=== PATIENT | female | born 1995 | race African-American/Black ===

== ENCOUNTER 2016-10-09 09:42 | Emergency (ER) | payer SELFPAY ==
[2016-10-09 09:49] VITALS: BP 131/97; PULSE 130; TEMP 99.3; BMI 24.7
[2016-10-09] MEDS ORDERED: AZITHROMYCIN 1 GM PACKET PO ONE (10:28)
[2016-10-09] MEDS ORDERED: AZITHROMYCIN 1 GM PACKET ONE (10:40)
--- NOTE | 2016-10-09 10:43 | PDOC ---
History of Present Illness - General Chief Complaint: Vaginal Sxs Stated Complaint: IRRITATION (GENITALIA) Time Seen by Provider: 10/09/16 10:10 History Source: Patient Exam Limitations: No Limitations - History of Present Illness Travel History: No Initial Comments: 10/09/16 10:39 Patient came for evaluation of dry and itching to vagina. was treated for candidiasis one month ago with creams which felt like resolved. However had a recurrence of dryness, itching, and foul smell vaginally. is with same sexual partner who is asymptomatic of any drainage sores lesions or history of STDs. Denies nausea vomiting, or fevers. Denies any dysuria. 10/10/16 09:11 Timing/Duration: reports: getting worse, changing over time Quality: reports: mild, moderate Abdominal Pain Onset Location: reports: suprapubic Pain Radiation: reports: no radiation Past History - Travel Traveled outside of the country in the last 30 days: No Close contact w/someone who was outside of country & ill: No - Past Medical History Allergies/Adverse Reactions: Allergies Allergy/AdvReac Type Severity Reaction Status Date / Time Penicillins Allergy Hives Verified 10/09/16 09:49 Home Medications: Ambulatory Orders Fluconazole [Diflucan -] 50 mg PO ONCE #2 tablet 10/09/16 Fluconazole [Diflucan -] 100 mg PO ONCE #2 tablet 10/09/16 Other medical history: NONE - Reproductive History Cervical CA: No Dysfunctional Uterine Bleeding: No Ectopic : No Endometrial CA: No Polycystic Ovaries: No Tubal Ligation: No - Immunization History Immunization Up to Date: Yes - Psycho/Social/Smoking Cessation Hx Anxiety: No Suicidal Ideation: No Smoking Status: No Smoking History: Never smoked Have you smoked in the past 12 months: No Number of Cigarettes Smoked Daily: 0 Cigars Per Day: 0 Hx Alcohol Use: Yes (SOCIAL) Drug/Substance Use Hx: No Substance Use Type: Marijuana Review of Systems - Review of Systems Able to Perform ROS?: Yes Is the patient limited Indonesian proficient: Yes Constitutional: Yes: See HPI. No: Symptoms Reported, Chills, Fever, Malaise HEENTM: Yes: See HPI. No: Symptoms Reported Respiratory: Yes: See HPI. No: Symptoms reported ABD/GI: Yes: Symptoms Reported, See HPI, Abdominal cramping (right side due to recurrent ovarian cyst) : Yes: Symptoms Reported, See HPI, Burning, Discharge All Other Systems: Reviewed and Negative *Physical Exam - Vital Signs Last Vital Signs Temp Pulse Resp BP Pulse Ox 99.3 F 130 H 20 131/97 99 10/09/16 09:46 10/09/16 09:46 10/09/16 09:46 10/09/16 09:46 10/09/16 09:46 - Physical Exam General Appearance: Yes: Appropriately Dressed, Apparent Distress, Mild Distress , Moderate Distress HEENT: positive: EDMOND, Normal ENT Inspection, TMs Normal, Pharynx Normal Female Pelvic Exam: positive: normal external exam, cervical os closed, discharge (thick white) Gastrointestinal/Abdominal: positive: Tender (superpubic and right adenxa fullness and tenderness. Has a moderate amount of thick white drainage in the vaginal vault consistent with a Erin appearance with some erythema noted to cervix. Mild malodor), Soft Extremity: positive: Normal Capillary Refill, Normal Inspection Integumentary: positive: Normal Color, Dry Neurologic: positive: control systems developer II-XII NML intact, Fully Oriented, Alert, Normal Mood/ Affect, Normal Response, Motor Strength 5/5 Progress Note - Progress Note Progress Note: Vaginal candidiasis, we will treat with Diflucan, also medicated with azithromycin to treat chlamydia prophylactically. Patient has a significant penicillin ALLERGY and due to the fact patient partner is asymptomatic and she has been tested recently for STDs will hold gonorrhea treatment until resulting. Patient understands will have to return for treatment if that result is positive. *DC/Admit/Observation/Transfer Diagnosis at time of Disposition: Erin vaginitis - Discharge Dispostion Disposition: HOME Condition at time of disposition: Stable Admit: No - Prescriptions Prescriptions: Fluconazole [Diflucan -] 100 mg PO ONCE #2 tablet Fluconazole [Diflucan -] 50 mg PO ONCE #2 tablet - Referrals Referrals: Bk Teague MD [Primary Care Provider] - - Patient Instructions Printed Discharge Instructions: DI for Vaginal Yeast Infection Additional Instructions: You been treated today with azithromycin 1 g by mouth for treatment of chlamydia Prescription for Diflucan sent, one tablet taken today for 1 time dosing. An additional tablet has been provided for 1 week repeat as needed We will wait until culture reports resturned in 2 -5 days for treatment for Gonorrhea due to Penicillin allergy.. and treat if possitive. Always use condoms with the partners Followup with [facility] in one week for reevaluation and retesting. Encouraged HIV testing at that visit. - Post Discharge Activity Work/School Note: Back to Work
[2016-10-09 11:07] LABS: URINE APPEARANCE SLCLOUDY; URINE BILIRUBIN NEGATIVE (NEGATIVE); URINE BLOOD 1+ (NEGATIVE); URINE COLOR YELLOW; URINE GLUCOSE (UA) NEGATIVE (NEGATIVE); URINE KETONE NEGATIVE (NEGATIVE); URINE NITRITE NEGATIVE (NEGATIVE); URINE PROTEIN NEGATIVE (NEGATIVE); URINE UROBILINOGEN NEGATIVE mg/dL (0.2-1.0)
[2016-10-09 11:13] LABS: URINE LEUK ESTERASE 3+ (NEGATIVE)
[2016-10-09 11:47] LABS: URINE MUCUS RARE; URINE RBC 11 /hpf (0-3); URINE WBC 12 /hpf (3-5)
== END 2016-10-09 10:56 | disposition home or self-care (01) ==
LOC: JERFT 09:42
DX: B37.3 Candidiasis of vulva and vagina (principal)
CPT/HCPCS: 36415; 81003; 81015; 84703; 87491; 87591; 99281-25

== ENCOUNTER 2017-04-14 12:59 | Emergency (ER) | payer SELFPAY ==
[2017-04-14 13:58] VITALS: BP 116/65; BMI 22.6
--- NOTE | 2017-04-14 14:48 | PDOC ---
History of Present Illness - General Chief Complaint: Cold Symptoms Stated Complaint: HEADACHE, BODYACHES Time Seen by Provider: 04/14/17 14:42 History Source: Patient Exam Limitations: No Limitations - History of Present Illness Initial Comments: CHIEF COMPLAINT: 21 y/o tachycardic female with no significant PMH c/o flu like symptoms since yesterday. HISTORY OF PRESENT ILLNESS: Patient states she's felt warm, had chills, headache, dry cough, runny nose and body aches since yesterday. The patient states the symptoms came out of nowhere. She did not receive the flu shot this year. She was afebrile in triage but a recheck reveals temp of 99.8. Past History - Past Medical History Allergies/Adverse Reactions: Allergies Allergy/AdvReac Type Severity Reaction Status Date / Time Penicillins Allergy Hives Verified 04/14/17 14:32 Home Medications: Ambulatory Orders Oseltamivir Phosphate [Tamiflu -] 75 mg PO BID #10 capsule 04/14/17 Anemia: No Asthma: No Cancer: No Cardiac Disorders: No CVA: No COPD: No DVT: No Dementia: No Diabetes: No Dialysis: No GI Disorders: No Disorders: No HTN: No Hypercholesterolemia: No Kidney Stones: No Liver Disease: No Psychiatric Problems: No Seizures: No Thyroid Disease: No Lung CA: No - Surgical History Abdominal Surgery: No Appendectomy: No Cardiac Surgery: No Cholecystectomy: No Gastric Stapling: No GI Surgery: No Lung Surgery: No Neurologic Surgery: No - Reproductive History Cervical CA: No Dysfunctional Uterine Bleeding: No Ectopic : No Endometrial CA: No Polycystic Ovaries: No Tubal Ligation: No - Immunization History Immunization Up to Date: Yes - Suicide/Smoking/Psychosocial Hx Smoking Status: No Smoking History: Never smoked Have you smoked in the past 12 months: No Number of Cigarettes Smoked Daily: 0 Cigars Per Day: 0 Information on smoking cessation initiated: No Hx Alcohol Use: No Drug/Substance Use Hx: Yes ([facility]) Substance Use Type: Marijuana Review of Systems - Review of Systems Able to Perform ROS?: Yes Constitutional: Yes: Chills, Fever, Other (body aches) HEENTM: Yes: Ear Discharge, Nose Pain, Nose Congestion, Throat Pain. No: Ear Pain, Difficulty Swallowing Respiratory: Yes: Cough. No: Shortness of Breath, Wheezing Cardiac (ROS): No: Chest Pain ABD/GI: No: Diarrhea, Nausea, Vomiting *Physical Exam - Vital Signs Last Vital Signs Temp Pulse Resp BP Pulse Ox 98.4 F 110 H 20 116/65 97 04/14/17 13:56 04/14/17 13:56 04/14/17 13:56 04/14/17 13:56 04/14/17 13:56 - Physical Exam Comments: 21 y/o non toxic but ill appearing female, ambulatory to ER. General Appearance: Yes: Nourished, Appropriately Dressed. No: Apparent Distress HEENT: positive: EOMI, EDMOND, Pharyngeal Erythema, Nasal Congestion ( erythematous nares.), Rhinorrhea. negative: Tonsillar Exudate, Tonsillar Erythema, TM Bulging, TM Dull, TM Erythema Neck: negative: Lymphadenopathy (R), Lymphadenopathy (L) Respiratory/Chest: positive: Lungs Clear. negative: Wheezing Cardiovascular: positive: Tachycardia Neurologic: positive: director of ancillary services II-XII NML intact, Fully Oriented, Alert, Normal Mood/ Affect, Motor Strength 5/5 Medical Decision Making - Medical Decision Making A/P: 21 y/o female with the flu. Will treat with tylenol and fluids. Will recheck heart rate. Pt no longer tachycardic. WIll d/c to home with rx for tamiflu and supportive care instructions. Instructed her to return to the ER with any worsening or concerning symptoms. The patient verbalizes understanding of all instructions, has no further questions and is awaiting discharge. *DC/Admit/Observation/Transfer Diagnosis at time of Disposition: Influenza - Discharge Dispostion Disposition: HOME Condition at time of disposition: Improved - Prescriptions Prescriptions: Oseltamivir Phosphate [Tamiflu -] 75 mg PO BID #10 capsule - Referrals Referrals: Bk Teague MD [Primary Care Provider] - - Patient Instructions Printed Discharge Instructions: DI for Influenza -- Adult Additional Instructions: Discharge instructions: -You have the flu -A prescription for tamiflu was sent to your pharmacy -Please alternate between tylenol and motrin every 3 hours for fever -Drink plenty of fluids and get lots of rest -Return to the ER with any worsening or concerning symptoms. - Post Discharge Activity
[2017-04-14] MEDS ORDERED: ACETAMINOPHEN 325 MG TABLET (FP) PO ONE (14:52)
[2017-04-14] MEDS ORDERED: ACETAMINOPHEN 325 MG TABLET (FP) ONE (14:55)
[2017-04-14] MEDS ORDERED: IBUPROFEN 600 MG TABLET (FP) PO ONE ×2 (16:30)
[2017-04-14 17:09] VITALS: PULSE 91; TEMP 99.5
== END 2017-04-14 17:12 | disposition home or self-care (01) ==
LOC: JER 12:59 → JERFT 12:59
DX: J11.1 Influenza due to unidentified influenza virus with other respiratory manifestations (principal)
CPT/HCPCS: 84703; 99281-25

== ENCOUNTER 2017-11-03 11:52 | Emergency (ER) | payer SELFPAY ==
[2017-11-03 12:08] VITALS: BP 94/64; PULSE 73; TEMP 99.1; BMI 24.7
--- NOTE | 2017-11-03 12:19 | PDOC ---
History of Present Illness - General Chief Complaint: Revisit, Lab Variance Stated Complaint: REVISIT, FOLLOW UP Time Seen by Provider: 11/03/17 12:10 - History of Present Illness Initial Comments: 11/03/17 12:42 Patient is a 22-year-old female with no past medical history who presents to the emergency department today for repeat beta hCG and ultrasound testing. Patient found out on 11/01/17 that she is . She was evaluated in our emergency department for abdominal pain at the time. On her ultrasound 2 days ago there was no identified as patient is most likely 3 weeks . Ectopic could not be ruled out, so she was sent back to the emergency department for further evaluation. Today patient denies abdominal pain, vomiting , nausea, vaginal bleeding, discharge. Past History - Travel Traveled outside of the country in the last 30 days: No Close contact w/someone who was outside of country & ill: No - Past Medical History Allergies/Adverse Reactions: Allergies Allergy/AdvReac Type Severity Reaction Status Date / Time Penicillins Allergy Hives Verified 11/03/17 12:02 Home Medications: Ambulatory Orders NK [No Known Home Medication] 11/01/17 Anemia: No Asthma: No Cancer: No Cardiac Disorders: No CVA: No COPD: No DVT: No Dementia: No Diabetes: No Dialysis: No GI Disorders: No Disorders: No HTN: No Hypercholesterolemia: No Kidney Stones: No Liver Disease: No Psychiatric Problems: No Seizures: No Thyroid Disease: No Lung CA: No - Surgical History Abdominal Surgery: No Appendectomy: No Cardiac Surgery: No Cholecystectomy: No Gastric Stapling: No GI Surgery: No Lung Surgery: No Neurologic Surgery: No - Reproductive History Cervical CA: No Dysfunctional Uterine Bleeding: No Ectopic : No Endometrial CA: No Polycystic Ovaries: No Tubal Ligation: No - Immunization History Immunization Up to Date: Yes - Suicide/Smoking/Psychosocial Hx Smoking Status: No Smoking History: Unknown if ever smoked Have you smoked in the past 12 months: No Number of Cigarettes Smoked Daily: 0 Cigars Per Day: 0 Hx Alcohol Use: No Drug/Substance Use Hx: No Substance Use Type: None Review of Systems - Review of Systems Able to Perform ROS?: Yes Comments:: 11/03/17 12:40 CONSTITUTIONAL: Absent: fever, chills, diaphoresis, generalized weakness, malaise, loss of appetite HEENT: Absent: rhinorrhea, nasal congestion, throat pain, throat swelling, difficulty swallowing, mouth swelling, ear pain, eye pain, visual Changes CARDIOVASCULAR: Absent: chest pain, loss of consciousness, palpitations, irregular heart rate, peripheral edema RESPIRATORY: Absent: cough, shortness of breath, dyspnea with exertion, orthopnea, wheezing, stridor, hemoptysis GASTROINTESTINAL: Absent: abdominal pain, abdominal distension, nausea, vomiting, diarrhea, constipation, melena, hematochezia GENITOURINARY: Absent: dysuria, frequency, urgency, hesitancy, hematuria, flank pain, genital pain MUSCULOSKELETAL: Absent: myalgia, arthralgia, joint swelling SKIN: Absent: rash, itching, pallor HEMATOLOGIC/IMMUNOLOGIC: Absent: easy bleeding, easy bruising, lymphadenopathy, frequent infections ENDOCRINE: Absent: unexplained weight gain, unexplained weight loss, heat intolerance, cold intolerance NEUROLOGIC: Absent: headache, focal weakness or paresthesias, dizziness, unsteady gait, seizure, mental status changes, bladder or bowel incontinence PSYCHIATRIC: Absent: anxiety, depression, suicidal or homicidal ideation, hallucinations. Is the patient limited Croatian proficient: No *Physical Exam - Vital Signs Last Vital Signs Temp Pulse Resp BP Pulse Ox 99.1 F 73 16 94/64 100 11/03/17 12:03 11/03/17 12:03 11/03/17 12:03 11/03/17 12:03 11/03/17 12:03 - Physical Exam Comments: 11/03/17 12:41 GENERAL: Well developed, well nourished. Awake and alert. No acute distress. HEENT: Normocephalic, atraumatic. PERRLA, EOMI. No conjunctival pallor. Sclera are non- icteric. Moist mucous membranes. Oropharynx is clear. NECK: Supple. Full ROM. No JVD. Carotid pulses 2+ and symmetric, without bruits. No thyromegaly. No lymphadenopathy. CARDIOVASCULAR: Regular rate and rhythm. No murmurs, rubs, or gallops. Distal pulses are 2+ and symmetric. PULMONARY: No evidence of respiratory distress. Lungs clear to auscultation bilaterally. No wheezing, rales or rhonchi. ABDOMINAL: Soft. Non-tender. Non-distended. No rebound or guarding. No organomegaly. Normoactive bowel sounds. MUSCULOSKELETAL Normal range of motion at all joints. No bony deformities or tenderness. No CVA tenderness. EXTREMITIES: No cyanosis. No clubbing. No edema. No calf tenderness. SKIN: Warm and dry. Normal capillary refill. No rashes. No jaundice. NEUROLOGICAL: Alert, awake, appropriate. Cranial nerves 2-12 intact. No deficits to light touch and temperature in face, upper extremities and lower extremities. No motor deficits in the in face, upper extremities and lower extremities. Normoreflexic in the upper and lower extremities. Normal speech. Toes are down- going bilaterally. Gait is normal without ataxia. PSYCHIATRIC: Cooperative. Good eye contact. Appropriate mood and affect. Medical Decision Making - Medical Decision Making 11/03/17 12:42 Pt is a 22 y/o F who presents to the ED for repeat beta HCG and ultrasound after no was detected on last visit despite (+) beta hcg -No vaginal bleeding or abdominal pain at this time. -Repeat beta HCG testing and ultrasound. -Repeat beta is 352. This has more than doubled since 2 days ago -No IUP is seen at this time, No adnexal masses based on US. -Will have pt return in 4 days for repeat beta and US. Told pt to return sooner if she develops any bleeding or pain -I discussed the physical exam findings, ancillary test results and final diagnoses with the patient. I answered all of the patient's questions. The patient was satisfied with the care received and felt comfortable with the discharge plan and treatment plan. The Patient agrees to follow up with the primary care physician/specialist within 24-72 hours. Return precautions were given. *DC/Admit/Observation/Transfer Diagnosis at time of Disposition: Positive test - Discharge Dispostion Disposition: HOME Condition at time of disposition: Stable Decision to Admit order: No - Referrals Referrals: Bk Teague MD [Primary Care Provider] - - Patient Instructions Printed Discharge Instructions: DI for Vaginal Bleeding During Additional Instructions: Your US did not show a in the uterus today. Your Beta HCG or hormone has more than doubled since your last visit. You need to return in 4 days for repeat blood work and ultrasound It is important that you return to the ED for further testing. You may still have an ectopic ( outside of the uterus) Return to the ED sooner if you have bleeding, abdominal pain, or if you have any changes in your symptoms. - Post Discharge Activity Forms/Work/School Notes: Back to Work
== END 2017-11-03 14:50 | disposition home or self-care (01) ==
LOC: JERFT 11:52
DX: Z32.01 Encounter for pregnancy test, result positive (principal)
CPT/HCPCS: 36415; 76817-TC; 84702; 99281-25

== ENCOUNTER 2017-11-07 14:02 | Emergency (ER) | payer SELFPAY ==
[2017-11-07 14:14] VITALS: BP 117/63; PULSE 85; TEMP 98.9; BMI 24.7
--- NOTE | 2017-11-07 14:14 | PDOC ---
Rapid Medical Evaluation Time Seen by Provider: 11/07/17 14:07 Medical Evaluation: Allergies Allergy/AdvReac Type Severity Reaction Status Date / Time Penicillins Allergy Hives Verified 11/03/17 12:02 11/07/17 14:07 I have performed a brief in-person evaluation of this patient. The patient presents with a chief complaint of: , ~5 weeks by dates, here for 3rd ED visit for 1st trimester bleed which has since resolved. On ER visit , beta was 144 w/ no IUP seen, on visit 11/03, beta was 312 again w/ no IUP on US. No abd pain, dysuria, n/v/f/c. has not yet made her initial appt Pertinent physical exam findings:Stable w/ unremarkable exam I have ordered the following:beta/US The patient will proceed to the ED for further evaluation. 11/07/17 14:14
--- NOTE | 2017-11-07 14:22 | PDOC ---
History of Present Illness - General Chief Complaint: Revisit,Burn Stated Complaint: FOLLOW UP ON Time Seen by Provider: 11/07/17 14:07 History Source: Patient Exam Limitations: No Limitations - History of Present Illness Initial Comments: 11/07/17 15:16 Patient is a 22-year-old female with no past medical history who presents to the emergency department today for repeat beta hCG and ultrasound testing. Patient found out on 11/01/17 that she is . She was evaluated in our emergency department for abdominal pain at the time and had additional follow- up on 11/03/17. On her ultrasound 4 days ago there was no identified as patient is most likely 3 weeks . Ectopic could not be ruled out, so she was sent back to the emergency department for further evaluation. Pt reports she had vaginal bleeding and cramping two days ago, which has resolved since coming to the ED. Denies cramping or abdominal pain at this time. Past History - Travel Traveled outside of the country in the last 30 days: No Close contact w/someone who was outside of country & ill: No - Past Medical History Allergies/Adverse Reactions: Allergies Allergy/AdvReac Type Severity Reaction Status Date / Time Penicillins Allergy Hives Verified 11/07/17 14:08 Home Medications: Ambulatory Orders NK [No Known Home Medication] 11/01/17 Anemia: No Asthma: No Cancer: No Cardiac Disorders: No CVA: No COPD: No DVT: No Dementia: No Diabetes: No Dialysis: No GI Disorders: No Disorders: No HTN: No Hypercholesterolemia: No Kidney Stones: No Liver Disease: No Psychiatric Problems: No Seizures: No Thyroid Disease: No Lung CA: No - Surgical History Abdominal Surgery: No Appendectomy: No Cardiac Surgery: No Cholecystectomy: No Gastric Stapling: No GI Surgery: No Lung Surgery: No Neurologic Surgery: No - Reproductive History Cervical CA: No Dysfunctional Uterine Bleeding: No Ectopic : No Endometrial CA: No Polycystic Ovaries: No Tubal Ligation: No - Immunization History Immunization Up to Date: Yes - Suicide/Smoking/Psychosocial Hx Smoking Status: No Smoking History: Never smoked Have you smoked in the past 12 months: No Number of Cigarettes Smoked Daily: 0 Cigars Per Day: 0 Hx Alcohol Use: No Drug/Substance Use Hx: No Substance Use Type: None Review of Systems - Review of Systems Able to Perform ROS?: Yes Comments:: 11/07/17 15:18 CONSTITUTIONAL: Absent: fever, chills, diaphoresis, generalized weakness, malaise, loss of appetite HEENT: Absent: rhinorrhea, nasal congestion, throat pain, throat swelling, difficulty swallowing, mouth swelling, ear pain, eye pain, visual Changes CARDIOVASCULAR: Absent: chest pain, loss of consciousness, palpitations, irregular heart rate, peripheral edema RESPIRATORY: Absent: cough, shortness of breath, dyspnea with exertion, orthopnea, wheezing, stridor, hemoptysis GASTROINTESTINAL: Absent: abdominal pain, abdominal distension, nausea, vomiting, diarrhea, constipation, melena, hematochezia GENITOURINARY: Present: vaginal bleeding and cramping two days ago. Absent: dysuria, frequency , urgency, hesitancy, hematuria, flank pain, genital pain MUSCULOSKELETAL: Absent: myalgia, arthralgia, joint swelling SKIN: Absent: rash, itching, pallor HEMATOLOGIC/IMMUNOLOGIC: Absent: easy bleeding, easy bruising, lymphadenopathy, frequent infections ENDOCRINE: Absent: unexplained weight gain, unexplained weight loss, heat intolerance, cold intolerance NEUROLOGIC: Absent: headache, focal weakness or paresthesias, dizziness, unsteady gait, seizure, mental status changes, bladder or bowel incontinence PSYCHIATRIC: Absent: anxiety, depression, suicidal or homicidal ideation, hallucinations. Is the patient limited Belarusian proficient: No *Physical Exam - Vital Signs Last Vital Signs Temp Pulse Resp BP Pulse Ox 98.9 F 85 20 117/63 99 11/07/17 14:08 11/07/17 14:08 11/07/17 14:08 11/07/17 14:08 11/07/17 14:08 - Physical Exam Comments: 11/07/17 19:18 GENERAL: Well developed, well nourished. Awake and alert. No acute distress. HEENT: Normocephalic, atraumatic. PERRLA, EOMI. No conjunctival pallor. Sclera are non- icteric. Moist mucous membranes. Oropharynx is clear. NECK: Supple. Full ROM. No JVD. Carotid pulses 2+ and symmetric, without bruits. No thyromegaly. No lymphadenopathy. CARDIOVASCULAR: Regular rate and rhythm. No murmurs, rubs, or gallops. Distal pulses are 2+ and symmetric. PULMONARY: No evidence of respiratory distress. Lungs clear to auscultation bilaterally. No wheezing, rales or rhonchi. ABDOMINAL: Soft. Non-tender. Non-distended. No rebound or guarding. No organomegaly. Normoactive bowel sounds. MUSCULOSKELETAL Normal range of motion at all joints. No bony deformities or tenderness. No CVA tenderness. EXTREMITIES: No cyanosis. No clubbing. No edema. No calf tenderness. SKIN: Warm and dry. Normal capillary refill. No rashes. No jaundice. NEUROLOGICAL: Alert, awake, appropriate. Cranial nerves 2-12 intact. No deficits to light touch and temperature in face, upper extremities and lower extremities. No motor deficits in the in face, upper extremities and lower extremities. Normoreflexic in the upper and lower extremities. Normal speech. Toes are down- going bilaterally. Gait is normal without ataxia. PSYCHIATRIC: Cooperative. Good eye contact. Appropriate mood and affect. Medical Decision Making - Medical Decision Making 11/07/17 19:38 Patient is a 22-year-old female with no past medical history who presents to the emergency department today for repeat beta hCG and ultrasound testing. -No findings on physical exam. Pt states she is not bleeding at this time. -Beta down to 53 after being 300. -No evidence of IUP on ultrasound. Most likely pt miscarried two days ago when she had vaginal bleeding -T&S ordered. Pt is Rh (+). Do not need Rhogam at this time -DC home. [facility]. -I discussed the physical exam findings, ancillary test results and final diagnoses with the patient. I answered all of the patient's questions. The patient was satisfied with the care received and felt comfortable with the discharge plan and treatment plan. The Patient agrees to follow up with the primary care physician/specialist within 24-72 hours. Return precautions were given. *DC/Admit/Observation/Transfer Diagnosis at time of Disposition: Miscarriage - Discharge Dispostion Disposition: HOME Condition at time of disposition: Stable Decision to Admit order: No - Referrals Referrals: Bk Teague MD [Primary Care Provider] - Sherif Odell MD [Staff Physician] - - Patient Instructions Printed Discharge Instructions: DI for Miscarriage Additional Instructions: You most likely had a miscarriage Your ultra sound today did not show evidence of an Your hormone level has decreased from 300 to 52. Your blood type is A+ Please keep your follow up appointment with your pole inspector for further management Return to the ED if you have worsening pain, significant bleeding, fevers, or if you have any changes in your symptoms. - Post Discharge Activity
== END 2017-11-07 19:48 | disposition home or self-care (01) ==
LOC: JERFT 14:02
DX: O03.9 Complete or unspecified spontaneous abortion without complication (principal)
CPT/HCPCS: 36415; 76817-TC; 84702; 86850; 86900; 86901; 99281-25

== ENCOUNTER 2019-03-16 10:12 | Emergency (ER) | payer SELFPAY ==
[2019-03-16 10:23] VITALS: BP 134/80; PULSE 130; TEMP 102; BMI 23.0
--- NOTE | 2019-03-16 10:26 | PDOC ---
Rapid Medical Evaluation Chief Complaint: Sore Throat Time Seen by Provider: 03/16/19 10:25 Medical Evaluation: Allergies Allergy/AdvReac Type Severity Reaction Status Date / Time Penicillins Allergy Hives Verified 11/07/17 14:08 Vital Signs Temp Pulse Resp BP Pulse Ox 102.0 F H 130 H 18 134/80 97 03/16/19 10:20 03/16/19 10:20 03/16/19 10:20 03/16/19 10:20 03/16/19 10:20 03/16/19 10:25 Patient is otherwise healthy 23F here today with sore throat, rhinorrhea, ear pain. Tachycardic, febrile, non-toxic appearing. Exudates bilaterally Strep, flu sent. Patient to fast track. Discharge Disposition - Diagnosis Pharyngitis - Discharge Dispostion Condition at time of disposition: Stable - Referrals - Patient Instructions - Post Discharge Activity
[2019-03-16] MEDS ORDERED: ACETAMINOPHEN 500 MG TABLET (FP) PO ONE (11:21)
[2019-03-16] MEDS ORDERED: DEXAMETHASONE LIQUID 0.5 MG/5 ML PO ONE (11:21)
--- NOTE | 2019-03-16 11:24 | PDOC ---
History of Present Illness - General Chief Complaint: Sore Throat Stated Complaint: SORE THROAT Time Seen by Provider: 03/16/19 10:25 - History of Present Illness Initial Comments: 03/16/19 11:23 23-year-old female with sore throat and fever x1 day Past History - Past Medical History Allergies/Adverse Reactions: Allergies Allergy/AdvReac Type Severity Reaction Status Date / Time Penicillins Allergy Hives Verified 11/07/17 14:08 Home Medications: Ambulatory Orders Clindamycin [Cleocin -] 300 mg PO Q6HPO #28 capsule 03/16/19 Anemia: No Asthma: No Cancer: No Cardiac Disorders: No CVA: No COPD: No DVT: No Dementia: No Diabetes: No Dialysis: No GI Disorders: No Disorders: No HTN: No Hypercholesterolemia: No Kidney Stones: No Liver Disease: No Psychiatric Problems: No Seizures: No Thyroid Disease: No Lung CA: No - Surgical History Abdominal Surgery: No Appendectomy: No Cardiac Surgery: No Cholecystectomy: No Gastric Stapling: No GI Surgery: No Lung Surgery: No Neurologic Surgery: No - Reproductive History Cervical CA: No Dysfunctional Uterine Bleeding: No Ectopic : No Endometrial CA: No Polycystic Ovaries: No Tubal Ligation: No - Immunization History Immunization Up to Date: Yes - Psycho Social/Smoking Cessation Hx Smoking Status: No Smoking History: Never smoked Have you smoked in the past 12 months: No Number of Cigarettes Smoked Daily: 0 Cigars Per Day: 0 Information on smoking cessation initiated: No Hx Alcohol Use: No Drug/Substance Use Hx: No Substance Use Type: None Review of Systems - Review of Systems Constitutional: Yes: Fever HEENTM: Yes: Throat Pain, Difficulty Swallowing *Physical Exam - Vital Signs Last Vital Signs Temp Pulse Resp BP Pulse Ox 102.0 F H 130 H 18 134/80 97 03/16/19 10:20 03/16/19 10:20 03/16/19 10:20 03/16/19 10:20 03/16/19 10:20 - Physical Exam 03/16/19 11:23 HEAD: NC/AT EYES: Conjuntiva clear Ears: Canals and TM's normal NOSE: No d/c THROAT: Moist mucous membrances, oral pharanx erythemic with exudate, uvula midline NECK: Supple without adenopathy CARDIAC: S1 S2 LUNGS: CTA Full and Equal breath sounds ABDOMEN: Soft NT ND MS: Full ROM in all joints without edema NEUROLOGIC: No gross sensory or motor deficits, NVID SKIN: Normal color and temperature no lesions or rashes Medical Decision Making - Medical Decision Making 03/16/19 11:23 Impressive history and physical examination in light of negative strep and flu we will treat with clindamycin for strep pharyngitis Discharge - Discharge Information Problems reviewed: Yes Clinical Impression/Diagnosis: Pharyngitis Condition: Stable Disposition: HOME - Admission No - Additional Discharge Information Prescriptions: Clindamycin [Cleocin -] 300 mg PO Q6HPO #28 capsule - Follow up/Referral Referrals: Priyanka Sims MD [Staff Physician] - - Patient Discharge Instructions Additional Instructions: Your strep test today was negative please take the antibiotics as directed and complete the entire course. Return return to the emergency room for worsening symptoms. You were also treated with a long-acting steroid. You may take additional Tylenol as directed for pain control. Warm salt water gargles 5-6 times a day will help with your throat pain. Be sure to change her toothbrush in 48 hours. Please follow-up with internal medicine in 1 to 2 days for further evaluation and treatment options. - Post Discharge Activity
[2019-03-16] MEDS ORDERED: ACETAMINOPHEN 500 MG TABLET (FP) ONE (11:37)
[2019-03-16] MEDS ORDERED: DEXAMETHASONE SOD PHOSPHATE 10 MG/1 ML VIAL ONE (11:37)
== END 2019-03-16 11:46 | disposition home or self-care (01) ==
LOC: JERFT 10:12
DX: J02.9 Acute pharyngitis, unspecified (principal)
CPT/HCPCS: 87070; 87804; 87880; 99282-25

== ENCOUNTER 2022-05-13 15:56 | Emergency (ER) | payer OTHER ==
[2022-05-13 16:10] VITALS: BP 147/74; PULSE 77; RESP 16; TEMP 98; BMI 29.2
[2022-05-13] MEDS ORDERED: diphenhydrAMINE HCL 25 MG CAPSULE (FP) PO ONE (17:24)
[2022-05-13] MEDS ORDERED: LORATADINE 10 MG TABLET PO ONE (17:47)
== END 2022-05-13 18:20 | disposition home or self-care (01) ==
LOC: JERFT 15:56
DX: S80.861A Insect bite (nonvenomous), right lower leg, initial encounter (principal); W57.XXXA Bitten or stung by nonvenomous insect and other nonvenomous arthropods, initial encounter
CPT/HCPCS: 99282-25

== ENCOUNTER 2022-06-29 06:50 | Observation (INO) | payer OTHER ==
[2022-06-29] MEDS ORDERED: ALBUTEROL SO4 2.5/IPRATROPIUM 0.5 INH SOL 3 ML VIAL.NEB. NEB ONE ×2 (07:00→08:27)
[2022-06-29] MEDS ORDERED: methylPREDNISolone NA SUCC 125 MG/2 ML VIAL IVPB ONE (07:34)
[2022-06-29] MEDS ORDERED: ACETAMINOPHEN 1000 MG/100 ML BAG IVPB ONE (07:41)
[2022-06-29] MEDS ORDERED: ACETAMINOPHEN INJECTION 100 ML IVPB ONE (07:50)
[2022-06-29] MEDS ORDERED: methylPREDNISolone NA SUCC 125 MG/2 ML VIAL ONE (07:50)
[2022-06-29 07:59] LABS: BASO % 0.6 % (0-2.0); EOS % 3.6 % (0-4.5); HEMATOCRIT 38.7 % (32.4-45.2); HEMOGLOBIN 13.6 GM/dL (10.7-15.3); LYMPH % 18.2 % (8-40); MCH 28.6 pg (25.7-33.7); MCHC 35.2 g/dl (32.0-36.0); MEAN CELL VOLUME 81.4 fl (80-96); MEAN PLT VOLUME 7.8 fl (7.5-11.1); MONO % 10.7 % (3.8-10.2); NEUT % 66.9 % (42.8-82.8); PLATELET COUNT 259 10^3/uL (134-434); RBC 4.76 M/mm3 (3.60-5.2); RDW 15.1 % (11.6-15.6); WHITE BLOOD COUNT 9.4 K/mm3 (4.0-10.0)
[2022-06-29 08:12] LABS: POTASSIUM 3.8 mmol/L (3.5-5.1)
[2022-06-29 08:14] LABS: CALCIUM 9.1 mg/dL (8.5-10.1)
[2022-06-29 08:15] LABS: ALBUMIN 4.1 g/dl (3.4-5.0); BLOOD UREA NITROGEN 10.4 mg/dL (7-18)
[2022-06-29 08:19] LABS: BILIRUBIN,TOTAL 0.5 mg/dL (0.2-1)
[2022-06-29 08:20] LABS: TOT PROT 8.1 g/dl (6.4-8.2)
[2022-06-29] MEDS ORDERED: MAGNESIUM SULF 50% (8.12 MEQ/2 ML-1 GM VIAL) IVPB ONE (08:24)
[2022-06-29] MEDS ORDERED: SODIUM CHLORIDE 0.9% 500 ML INFUS.BAG IV ONE (08:24)
[2022-06-29] MEDS ORDERED: MAGNESIUM 1GM/D5W - 1 GM/100 ML IVPB IVPB ONE (08:27)
[2022-06-29] MEDS: ALBUTEROL SO4 2.5/IPRATROPIUM 0.5 INH SOL 3 ML VIAL.NEB. NEB SCH ×6 (08:32→20:42)
[2022-06-29] MEDS ORDERED: ALBUTEROL SO4 0.083% IH SOL 2.5 MG/3 ML VIAL.NEB. NEB PRN (10:11)
[2022-06-29] MEDS ORDERED: ACETAMINOPHEN 325 MG TABLET (FP) PO PRN (10:11)
[2022-06-29] MEDS: FAMOTIDINE 20 MG TABLET PO SCH (11:58)
[2022-06-29] MEDS: BUDESONIDE/FORMETEROL FUMARATE 80/4.5 mcg INHALER IH SCH ×2 (11:58→21:23)
[2022-06-29 12:25] VITALS: BMI 31.0
[2022-06-29] MEDS: methylPREDNISolone NA SUCC 40 MG/1 ML VIAL IVPUSH SCH ×2 (16:30→21:23)
[2022-06-29] MEDS: MONTELUKAST NA 10 MG TABLET PO SCH (21:23)
[2022-06-30] MEDS: methylPREDNISolone NA SUCC 40 MG/1 ML VIAL IVPUSH SCH ×3 (02:04→17:16)
[2022-06-30] MEDS: ALBUTEROL SO4 2.5/IPRATROPIUM 0.5 INH SOL 3 ML VIAL.NEB. NEB SCH ×4 (07:40→21:04)
[2022-06-30] MEDS: BUDESONIDE/FORMETEROL FUMARATE 80/4.5 mcg INHALER IH SCH ×2 (09:01→21:48)
[2022-06-30] MEDS: FAMOTIDINE 20 MG TABLET PO SCH (09:01)
[2022-06-30] MEDS: MONTELUKAST NA 10 MG TABLET PO SCH (21:48)
[2022-07-01] MEDS: methylPREDNISolone NA SUCC 40 MG/1 ML VIAL IVPUSH SCH ×3 (00:59→17:54)
[2022-07-01 08:15] LABS: HEMATOCRIT 37.4 % (32.4-45.2); HEMOGLOBIN 13.1 GM/dL (10.7-15.3); MCH 29.1 pg (25.7-33.7); MEAN CELL VOLUME 83.3 fl (80-96); MEAN PLT VOLUME 8.7 fl (7.5-11.1); PLATELET COUNT 297 10^3/uL (134-434); RBC 4.49 M/mm3 (3.60-5.2); RDW 15.3 % (11.6-15.6); WHITE BLOOD COUNT 20.4 K/mm3 (4.0-10.0)
[2022-07-01 08:30] LABS: POTASSIUM 4.9 mmol/L (3.5-5.1)
[2022-07-01 08:34] LABS: CALCIUM 9.6 mg/dL (8.5-10.1)
[2022-07-01 08:35] LABS: BLOOD UREA NITROGEN 16.6 mg/dL (7-18)
[2022-07-01] MEDS: ALBUTEROL SO4 2.5/IPRATROPIUM 0.5 INH SOL 3 ML VIAL.NEB. NEB SCH ×4 (08:55→20:28)
[2022-07-01 09:16] LABS: ANISOCYTOSIS 0; HELMET CELLS 0; HOWELL-JOLLY BODIES 0; MACROCYTOSIS 0; OVALOCYTE 0; ROULEAU 0; SICKELED CELLS 0; TARGET CELLS 0; TEAR DROP CELLS 0; TOXIC GRANULATION 0
[2022-07-01] MEDS: BUDESONIDE/FORMETEROL FUMARATE 80/4.5 mcg INHALER IH SCH ×2 (09:25→21:57)
[2022-07-01] MEDS: FAMOTIDINE 20 MG TABLET PO SCH (09:25)
[2022-07-01 18:17] VITALS: RESP 20
[2022-07-01] MEDS: MONTELUKAST NA 10 MG TABLET PO SCH (21:57)
[2022-07-02] MEDS: methylPREDNISolone NA SUCC 40 MG/1 ML VIAL IVPUSH SCH ×2 (01:11→10:40)
[2022-07-02] MEDS: ALBUTEROL SO4 2.5/IPRATROPIUM 0.5 INH SOL 3 ML VIAL.NEB. NEB SCH ×2 (07:40→11:35)
[2022-07-02] MEDS: FAMOTIDINE 20 MG TABLET PO SCH (10:40)
[2022-07-02] MEDS: BUDESONIDE/FORMETEROL FUMARATE 80/4.5 mcg INHALER IH SCH (10:40)
[2022-07-02 10:47] VITALS: BP 112/80; PULSE 89; TEMP 98
[2022-07-02] MEDS ORDERED: predniSONE 20 MG TABLET (UD) PO SCH (12:15)
== END 2022-07-02 13:58 | disposition home or self-care (01) ==
LOC: JER 06:50 → JERBED 09:29 → J5S 10:44
PROVIDERS: ADMIT Internal Medicine; ATTEND Internal Medicine
PROC: 3E033NZ Introduction of Analgesics, Hypnotics, Sedatives into Peripheral Vein, Percutaneous Approach (ICD-10-PCS; principal; 2022-06-29)
PROC: 3E0F7GC Introduction of Other Therapeutic Substance into Respiratory Tract, Via Natural or Artificial Opening (ICD-10-PCS; 2022-06-29)
PROC: 3E033GC Introduction of Other Therapeutic Substance into Peripheral Vein, Percutaneous Approach (ICD-10-PCS; 2022-06-29)
PROC: 3E0337Z Introduction of Electrolytic and Water Balance Substance into Peripheral Vein, Percutaneous Approach (ICD-10-PCS; 2022-06-29)
DX: J45.901 Unspecified asthma with (acute) exacerbation (principal); F12.20 Cannabis dependence, uncomplicated; Z88.0 Allergy status to penicillin
CPT/HCPCS: 0241U-QW; 36415; 71045-TC-FY; 80048; 80053; 84703; 85025; 87651; 93005; 93010; 94010; 94150; 94640; 96361; 96374; 96375; 96376; 99285-25; G0378

== ENCOUNTER 2022-08-03 09:07 | Emergency (ER) | payer OTHER ==
[2022-08-03 09:19] VITALS: BP 128/76; PULSE 93; RESP 18; TEMP 98; BMI 32.2
[2022-08-03] MEDS ORDERED: ALBUTEROL SO4 0.083% IH SOL 2.5 MG/3 ML VIAL.NEB. NEB ONE ×2 (09:27)
== END 2022-08-03 10:28 | disposition home or self-care (01) ==
LOC: JERFT 09:07
PROC: 3E0F7GC Introduction of Other Therapeutic Substance into Respiratory Tract, Via Natural or Artificial Opening (ICD-10-PCS; principal; 2022-08-03)
DX: J45.21 Mild intermittent asthma with (acute) exacerbation (principal); R07.89 Other chest pain; R06.02 Shortness of breath
CPT/HCPCS: 99283-25